=== PATIENT | female | born 1955 ===

== ENCOUNTER 2017-01-29 12:24 | Inpatient (IN) | payer BC, OTHER ==
[2017-01-08 08:49] VITALS: BMI 35.0
--- NOTE | 2017-01-08 09:24 | PAT Medication Instructions ---
Service Date January 08, 2017. Current Home Medication List Atorvastatin (Lipitor), 40 MG PO QPM Bupropion (Wellbutrin Sr), 150 MG PO BID Fluoxetine (Prozac), 10 MG PO QAM Omeprazole (Prilosec), 20 MG PO QAM Medication Instructions For Your Scheduled Surgery - Take the following medications the morning of surgery with a sip of water OTHERWISE NOTHING TO EAT OR DRINK AFTER MIDNIGHT: Fluoxetine (Prozac), 10 MG PO QAM Omeprazole (Prilosec), 20 MG PO QAM Bupropion (Wellbutrin Sr), 150 MG PO BID - Take the following medications as scheduled the night before surgery: Atorvastatin (Lipitor), 40 MG PO QPM Bupropion (Wellbutrin Sr), 150 MG PO BID If you have any questions please call us at [phone] or [phone] or [phone]
[2017-01-08 10:22] LABS: BASO % 0.4 %; BASO ABS # 0.03 K/uL (0-0.2); COMPLETE YES; EOS % 2.3 %; HEMATOCRIT 43.2 % (37-47); IG% 0.1 %; LYMPH % 29.8 %; LYMPH ABS # 2.11 K/uL (1.2-3.4); MEAN CELL VOLUME 88.5 fL (80-100); MEAN CORPUSCULAR HEMOGLOBIN 28.3 pg (25-34); MEAN CORPUSCULAR HGB CONC 31.9 g/dl (32-36); MEAN PLATELET VOLUME 10.5 fL (7.4-10.4); MONO % 13.2 %; NEUT % 54.2 %; PLATELET COUNT 286 K/uL (130-400); RED BLOOD COUNT 4.88 M/uL (4.2-5.4); WHITE BLOOD COUNT 7.07 K/uL (4.8-10.8)
[2017-01-08 10:22] LABS: MANUAL MICROSCOPIC REQUIRED? NO; REVIEW REQ? NO; URINE APPEARANCE CLEAR (CLEAR); URINE BILIRUBIN NEG (NEG); URINE COLOR YELLOW; URINE NITRITE NEG (NEG); URINE SPECIFIC GRAVITY 1.018 (1.000-1.030); UROBILINOGEN NEG (NEG); ZZUR CULT IF INDIC CLEAN CATCH NO
[2017-01-08 10:29] LABS: INR 0.9 (0.9-1.1); PARTIAL THROMBOPLASTIN RATIO 1.1
[2017-01-08 11:46] LABS: ESTIMATED AVERAGE GLUCOSE 117 mg/dl; HA1C FLAG Normal (Normal)
--- NOTE | 2017-01-22 12:37 | HISTORY & PHYSICAL EXAMINATION ---
DATE OF ADMISSION: 01/29/2017 SUBJECTIVE CHIEF COMPLAINT: Right knee pain. HISTORY OF PRESENT ILLNESS: The patient is a 61-year-old female who complains of right knee pain. She states that the symptoms have been chronic and nontraumatic in nature. The pain is described as aching and sharp, it occurs continuously. She has difficulty with her activities of daily living. She has tried cortisone injections, nonsteroidal anti-inflammatories and physical therapy with no relief. She would like to proceed with a right total knee arthroplasty. PAST MEDICAL HISTORY: Significant for hypercholesterolemia, shortness of breath while walking upstairs, osteoarthritis, GERD, obesity, and chronic kidney disease stage III. PAST SURGICAL HISTORY: Left kidney removal, left knee meniscectomy, one foot of colon removed, and tonsillectomy. SOCIAL HISTORY: She denies alcohol use, denies smoking or tobacco use. Denies IV or illegal drug use. She lives in a 1-audi house. She is currently on disability. FAMILY HISTORY: Noncontributory at this time. ALLERGIES: NONSTEROIDAL ANTI-INFLAMMATORIES. MEDICATIONS: Fluoxetine 10 mg once daily, Wellbutrin-SR 150 mg 1 tablet twice a day, esomeprazole 20 mg daily, Flexeril 10 mg 1 tab 3 times a day as needed for muscle spasms, Lipitor 40 mg 1 tab daily, Flonase nasal spray 2 sprays each nostril daily. REVIEW OF SYSTEMS: She denies headaches, fevers, chills, double vision, blurry vision, sore throat, cough, chest pain, nausea, vomiting, diarrhea, constipation, numbness, tingling, tired, urinary difficulties, thoughts to harm herself or harm others or depression. She is positive for joint pain and joint stiffness of the right knee. OBJECTIVE: GENERAL APPEARANCE: The patient is a 61-year-old female that is sitting, in no acute distress. She is well dressed, well nourished. She is awake, alert and oriented x3. VITAL SIGNS: She is 5 foot 3 inches tall, 197 pounds, blood pressure is 136/82. HEENT: Normocephalic, atraumatic. Extraocular movements are intact. PERRLA. Mucosa was moist. No septal deviation. NECK: Supple with no lymphadenopathy, no JVD, no thyromegaly. HEART: Regular rate and rhythm. No murmurs or gallops. LUNGS: Clear to auscultation with no wheezing or rhonchi. ABDOMEN: Soft, nontender, nondistended. Normal bowel sounds, no hepatosplenomegaly. EXTREMITIES: Paying particular attention to the right lower extremity with her knee. She is able to actively extend to 0 degrees and actively flex to 90 degrees. She does have diffuse tenderness, more so over the medial joint line. Her ligaments are intact. NEUROLOGIC: Cranial nerves II-XII are intact. Pulses were compared bilaterally and were equal. IMAGING: X-ray of the right knee shows [id number] medial compartment osteophyte formation and subchondral sclerosis. IMPRESSION: Right knee degenerative joint disease. PLAN: The patient is scheduled for a right total knee arthroplasty. She has failed conservative therapies that include cortisone injection, nonsteroidal anti-inflammatories and physical therapy. She would like to proceed with a right total knee arthroplasty. Risks and benefits were discussed that included but not limited to infection, DVT, pain, stiffness, need for revision surgery, damage to blood vessels, damage to nerves, PE, and anesthesia risks were all discussed with the patient and she wishes to proceed. All questions were answered to her satisfaction. DVT prophylaxis will be aspirin 81 mg twice a day. She would like to go home with home health after her hospital stay and her postop appointment will be on 02/10/2017. LAURA
[2017-01-29] VITALS (7 sets, daily range): BP systolic 118–143; BP diastolic 78–86; PULSE 75–92; TEMP 36.5–37; O2SAT 89–98; Ht 160 cm; Wt 90.0 kg
[~2017-01-29] VITALS: Ht 160 cm; Wt 90.0 kg
[~2017-01-29 12:24] MED LIST: ACETAMINOPHEN 500 MG TAB PO SCH; ATOR-24 PO; BUPIVACAINE 0.25% 30 ML VIAL ONE; BUPIVACAINE 0.5 % 5 MG/1 ML PF 10ML VIAL ONE; BUPR-79 PO; CEFAZOLIN 2000 MG/60 ML D5W 60 ML IV SCH; CeleBREX 200 MG CAP PO SCH; DEXAMETHASONE 4 MG TAB PO SCH; FAMOTIDINE 20 MG TAB PO SCH; FENTANYL CITRATE INJ 50 MCG/1 ML 2 ML VIAL ONE; FLUO10CA48 PO; GABAPENTIN 300 MG CAP PO SCH; LACTATED RINGER'S 1000ML 1,000 ML IV SCH; LACTATED RINGER'S 1000ML IV SCH; METOCLOPRAMIDE HCL 10 MG TAB PO SCH; MIDAZOLAM HCL 1 MG/ML 2ML VIAL ONE; ONDANSETRON INJ 2 MG/ML 2 ML VIAL ONE; OXYCODONE HCL 10 MG TABCR (OXYCONTIN) PO SCH; PRLSR20 PO; PROPOFOL IV EMULSION 10 MG/ML 20 ML VIAL IV ONE; ROPIVACAINE 5MG/ML 30 ML 150 MG, BUPIVACAINE/EPINEPHR 0.5% MPF 30 ML, KETOROLAC TROMETH... INFIL SCH
--- NOTE | 2017-01-29 12:52 | History & Physical Bridge Note ---
H&P Re-Evaluation Bridge Note: I have examined the patient, reviewed the History & Physical and in the interval since the performance of the History & Physical I have noted the following changes of clinical significance: No changes noted
[2017-01-29] MEDS ORDERED: ORTHO JOINT ANESTHETIC ONE (13:24)
[2017-01-29] MEDS ORDERED: BACITRACIN 50000 UNIT VIAL ONE (13:24)
[2017-01-29] MEDS ORDERED: POVIDONE-IODINE OP SOLN 30 ML BTL ONE (13:24)
[2017-01-29] MEDS ORDERED: LACTATED RINGER'S 1000ML 1,000 ML IV PRN (13:38)
[2017-01-29] MEDS: TRANEXAMIC ACID INJ 1,000 MG in SODIUM CHLORIDE 0.9% 100ML 100 ML IV SCH ×2 (13:40→16:15)
[2017-01-29] MEDS ORDERED: FENTANYL CITRATE INJ 50 MCG/1 ML 2 ML VIAL IV PRN (13:45)
[2017-01-29] MEDS ORDERED: ONDANSETRON INJ 2 MG/ML 2 ML VIAL IV PRN (13:45)
[2017-01-29] MEDS ORDERED: MIDAZOLAM HCL 1 MG/ML 2ML VIAL ONE (14:15)
[2017-01-29] MEDS ORDERED: PROPOFOL IV EMULSION 10 MG/ML 20 ML VIAL IV ONE (15:23)
--- NOTE | 2017-01-29 15:47 | [facility] Post Operative Brief Note ---
Immediate Operative Summary Operative Date Jan 29, 2017. Pre-Operative Diagnosis Right knee degenerative joint disease Post-Operative Diagnosis Right knee degenerative joint disease Procedure(s) Performed Right Total Knee Arthroplasty Surgeon Dr. Vargas Blender / Cook Surgeon(s) Gary Alvarado PA-C Estimated Blood Loss 20ml Findings above Specimens A. Right Knee Bone and Tissue Drains 2 hemovac Anesthesia spinal Complication(s) None Disposition Recovery Room / PACU
[2017-01-29] MEDS ORDERED: BISACODYL 10 MG SUPP PR PRN (16:15)
[2017-01-29] MEDS ORDERED: ALUMINUM/MAGNESIUM/SIMETH (MAALOX MAX) 30 ML UDC PO PRN (16:15)
[2017-01-29] MEDS ORDERED: MoRPHine SULFATE 2 MG/ML CARP IV PRN ×2 (16:15→16:30)
[2017-01-29] MEDS ORDERED: MAGNESIUM HYDROXIDE SUSP 30 ML UDC PO PRN (16:15)
[2017-01-29] MEDS ORDERED: MoRPHine SULFATE 4 MG/ML 1 ML CARP\\VIAL IV PRN (16:30)
[2017-01-29] MEDS ORDERED: MoRPHine SULFATE 10 MG/ML CARP/VIAL IV PRN (16:30)
--- NOTE | 2017-01-29 16:30 | DIAGNOSTIC IMAGING REPORT ---
RIGHT KNEE 1 OR 2 VIEWS ROUTINE CLINICAL HISTORY: Osteoarthritis. Postoperative study COMPARISON: None. DISCUSSION: There are postsurgical changes of a total right knee arthroplasty and patellar resurfacing. The femoral and tibial components appear well seated. Overlying skin jeet and surgical drains are evident. There is air within soft tissues consistent with recent surgery. IMPRESSION: Postsurgical changes of a total right knee arthroplasty. Electronically signed by: Bobby Trevino M.D. 01/29/2017 4:29 PM Dictated Date/Time: 01/29/2017 4:28 PM
--- NOTE | 2017-01-29 17:06 | Anesthesiology Progress Note ---
Anesthesia Post Op Note Date & Time Jan 29, 2017 at 17:07 Vital Signs Pain Intensity: 0 Vital Signs Past 12 Hours Date Time Temp Pulse Resp B/P (MAP) Pulse Ox O2 Delivery O2 Flow Rate FiO2 01/29/17 16:35 87 12 96 01/29/17 16:35 87 12 01/29/17 16:33 36.8 87 16 126/70 95 Nasal Cannula 2 01/29/17 16:32 126/70 01/29/17 16:30 84 11 125/78 97 01/29/17 16:30 85 11 01/29/17 16:20 85 12 119/74 98 Nasal Cannula 2 01/29/17 16:11 37.2 90 16 110/67 98 Nasal Cannula 2 01/29/17 16:00 37.2 90 20 118/76 98 Nasal Cannula 2 01/29/17 12:50 37 86 18 95 Room Air Notes Mental Status: alert / awake / arousable, participated in evaluation Pt Amnestic to Procedure: Yes Nausea / Vomiting: adequately controlled Pain: adequately controlled Airway Patency, RR, SpO2: stable & adequate BP & HR: stable & adequate Hydration State: stable & adequate Neuraxial Anesthesia: was administered, sensory block is resolving Anesthetic Complications: no major complications apparent Pt did well.
[2017-01-29] MEDS: D5W AND 1/2NSS + 20MEQ KCL 1,000 ML IV SCH (18:10)
[2017-01-29] MEDS: FERROUS GLUCONATE 324 MG TAB PO SCH (18:11)
--- NOTE | 2017-01-29 18:40 | OPERATIVE REPORT ---
DATE OF OPERATION: 01/29/2017 PREOPERATIVE DIAGNOSIS: Right knee degenerative joint disease. POSTOPERATIVE DIAGNOSIS: Same. PROCEDURE: Right total knee arthroplasty. SURGEON: Dr. Vargas. ARC FURNACE OPERATOR: Gary Alvarado PA-C who was necessary for assistance of procedure with positioning, prepping, draping, retraction and closure. ANESTHESIA: Spinal with adductor canal block. SPECIMEN: Bone and tissue. COMPLICATIONS: None. ESTIMATED BLOOD LOSS: 20 mL. IMPLANTS: [employer] Journey version 2, femur 5, tibia 4, poly 9, patella 35 oval. COMPLICATIONS: None. INDICATIONS: The patient is a 61-year-old female with long-standing pain in the right knee. She has failed conservative measures including injection. SHE IS ALLERGIC TO Antiinflammatory MEDICATIONS. X-rays demonstrated that she is bone on bone in the lateral compartment on flexion x-ray views. Failing conservative measures, she wished to proceed with a right total knee arthroplasty. Risks, benefits, and alternatives of surgery including but not limited to infection, DVT, pain, stiffness, need for revision surgery, failure to relieve all symptoms, damage to blood vessels, damage to nerves, risks of anesthesia discussed with patient and she wished to proceed. DESCRIPTION OF PROCEDURE: The patient was identified, laterality was confirmed and marked. She received a preoperative antibiotic as well as a spinal anesthetic and an adductor canal block. A well-padded tourniquet was placed on the thigh and limb was prepped and draped in the usual sterile manner with ChloraPrep. Limb was exsanguinated and tourniquet was inflated. I made a longitudinal incision anterior aspect of the knee, sharply incising the skin utilizing Bovie electrocautery to achieve hemostasis. I made a medial parapatellar arthrotomy, mobilized the patella laterally, excised the anterior horns of medial and lateral meniscus and elevated the deep MCL. I then pinned into place a patient matched distal femoral cutting guide, made my distal femoral resection then pinned into place a size 5, 5-in-1 cutting guide, made my anterior, posterior and chamfer cuts. I then removed the remaining portions of the meniscus and cruciates. I then pinned into place my tibial cutting guide, which was patient matched and then made my tibial resection. We sized in position a size 4 tibia, pinned into place and then cut for the post. I removed the posterior osteophytes off of the femur and I placed the trial femoral component into position and reamed for the trochlear component. She had good soft tissue balancing and range of motion with a 9 mm poly. We then prepped the patella with a freehand cut and then sized and drilled for a size 39 oval patella. She had slight lateral tracking to the patella. Small lateral release was needed. All the trial components were removed. Wound was thoroughly irrigated. The definitive components were then cemented with Simplex with HV gent cement and this was [employer] Journey version 2, femur 5, tibia 4, poly 9, patella 35 oval. Deep tissues were anesthetized with an Orthomix solution. A deep drain was placed. Arthrotomy was closed with interrupted #1 Vicryl sutures, subcutaneous tissue with interrupted 2-0 Vicryl suture and skin with jeet. A sterile dressing was applied. All needle and sponge counts were correct at the end of the procedure. The patient was transferred to the PACU in stable condition without apparent complication. I attest to the content of the Intraoperative Record and any orders documented therein. Any exception s are noted below.
[2017-01-29] MEDS: OXYCODONE HCL 10 MG TABCR (OXYCONTIN) PO SCH (20:41)
[2017-01-29] MEDS: CEFAZOLIN IV 2,000 MG in DEXTROSE 5% 50ML 50 ML IV SCH (20:42)
[2017-01-29] MEDS: DOCUSATE SODIUM 100 MG CAP PO SCH (20:42)
[2017-01-29] MEDS: ASPIRIN 81 MG ECTAB PO SCH (20:42)
[2017-01-29] MEDS: SENNA 8.6 MG TAB PO SCH (20:43)
[2017-01-29] MEDS: BuPROPion SR 150 MG TABCR PO SCH (20:43)
[2017-01-29] MEDS: ATORVASTATIN 40 MG TAB PO SCH (20:43)
[2017-01-29] MEDS: ACETAMINOPHEN 500 MG TAB PO SCH (21:31)
[2017-01-29] MEDS: ONDANSETRON INJ 2 MG/ML 2 ML VIAL IV PRN (23:55)
[2017-01-30] VITALS (8 sets, daily range): BP systolic 142–163; BP diastolic 84–97; PULSE 71–89; TEMP 36.4–36.8; O2SAT 94–98
[2017-01-30] MEDS: CEFAZOLIN IV 2,000 MG in DEXTROSE 5% 50ML 50 ML IV SCH (04:04)
[2017-01-30] MEDS: D5W AND 1/2NSS + 20MEQ KCL 1,000 ML IV SCH ×2 (04:04→13:47)
[2017-01-30] MEDS: ACETAMINOPHEN 500 MG TAB PO SCH ×3 (05:35→22:09)
[2017-01-30 06:08] LABS: MEAN CELL VOLUME 87.4 fL (80-100); MEAN CORPUSCULAR HEMOGLOBIN 27.8 pg (25-34); MEAN CORPUSCULAR HGB CONC 31.8 g/dl (32-36); MEAN PLATELET VOLUME 10.1 fL (7.4-10.4); PLATELET COUNT 265 K/uL (130-400); RED BLOOD COUNT 4.35 M/uL (4.2-5.4); WHITE BLOOD COUNT 15.34 K/uL (4.8-10.8)
[2017-01-30 06:38] LABS: BUN/CREATININE RATIO 11.5 (10-20); CALCIUM 8.6 mg/dl (8.5-10.1); CREATININE 1.8 mg/dl (0.60-1.20); POTASSIUM 4.2 mmol/L (3.5-5.1)
[2017-01-30] MEDS: ONDANSETRON INJ 2 MG/ML 2 ML VIAL IV PRN (07:33)
[2017-01-30] MEDS: FERROUS GLUCONATE 324 MG TAB PO SCH ×3 (08:30→17:27)
[2017-01-30] MEDS: MULTIVITAMIN TAB PO SCH (09:00)
[2017-01-30] MEDS: DOCUSATE SODIUM 100 MG CAP PO SCH ×2 (09:40→20:37)
[2017-01-30] MEDS: BuPROPion SR 150 MG TABCR PO SCH ×2 (09:40→20:37)
[2017-01-30] MEDS: ASPIRIN 81 MG ECTAB PO SCH ×2 (09:40→20:37)
[2017-01-30] MEDS: OXYCODONE HCL 10 MG TABCR (OXYCONTIN) PO SCH ×2 (09:40→20:37)
[2017-01-30] MEDS: PANTOprazole SOD 40 MG TAB PO SCH (09:40)
[2017-01-30] MEDS: FLUOXETINE HCL 10 MG CAP PO SCH (09:40)
--- NOTE | 2017-01-30 10:14 | Orthopedic Progress Note ---
Orthopedic Progress Note Date of Service Jan 30, 2017. Subjective Post OP Day: 1 Reports: nausea / vomiting, pain controlled w PO medications, Denies: chest pain , SOB, light headedness, calf pain Additional Notes: N/V THIS AM RESOLVING MORNING GOES ON. HTN , MILDLY ELEVATED KIDNEY FUNCTION, HX OF ONE KIDNEY. Objective calves soft nontender, N/V intact, capillary refill less than 2 sec., dressing C /D/I, A&O x3, toes mobile Date Time Temp Pulse Resp B/P (MAP) Pulse Ox O2 Delivery O2 Flow Rate FiO2 01/30/17 08:15 163/96 (118) 01/30/17 08:13 153/97 (115) 01/30/17 08:11 145/90 (108) 01/30/17 07:46 Room Air 01/30/17 07:10 36.5 74 16 148/90 (109) 94 Room Air 01/30/17 02:59 36.4 71 16 150/92 (111) 97 Room Air 01/29/17 23:30 Room Air 01/29/17 23:30 36.5 75 18 118/78 (91) 95 Room Air 01/29/17 20:27 36.9 92 16 143/80 (101) 95 Room Air 01/29/17 18:59 36.9 83 16 132/82 (99) 97 Nasal Cannula 2.0 01/29/17 17:55 36.8 83 16 127/82 (97) 95 Nasal Cannula 2.0 01/29/17 17:26 36.9 83 18 136/84 (101) 97 Nasal Cannula 2.0 01/29/17 16:55 98 Nasal Cannula 2.0 01/29/17 16:55 36.7 82 18 125/86 (99) 89 Nasal Cannula 2.0 01/29/17 16:55 98 Nasal Cannula 2.0 01/29/17 16:35 87 12 96 01/29/17 16:35 87 12 01/29/17 16:33 36.8 87 16 126/70 95 Nasal Cannula 2 01/29/17 16:32 126/70 01/29/17 16:30 84 11 125/78 97 01/29/17 16:30 85 11 01/29/17 16:20 85 12 119/74 98 Nasal Cannula 2 01/29/17 16:11 37.2 90 16 110/67 98 Nasal Cannula 2 01/29/17 16:00 37.2 90 20 118/76 98 Nasal Cannula 2 01/29/17 12:50 37 86 18 95 Room Air Laboratory Results 24 Hours: Test 01/30/17 05:45 Hematocrit 38.0 % Hemoglobin 12.1 g/dL Assessment & Plan Assessment: POD #1, RIGHT TKA POST OP HTN Plan: PT/ OT DVT PROPH- ASA D/C PLANNING HOME W HH CONSULT MEDICINE- UNCONTROLLED HTN, KIDNEY FUNCTION Inhouse Planning Pain Management: Oxycontin, Morphine, PO Tylenol, Oxy IR DVT Prophylaxis: TEDs, SCDs, ASA Discharge Planning Discharge Planning: home with home health Pain Management: Oxycontin, PO Tylenol, Oxy IR DVT Prophylaxis: TEDs, ASA Therapy: Physical Therapy, Occupational Therapy
[2017-01-30] MEDS ORDERED: HydrALAZINE HCL 20 MG/ML VIAL IV. PRN (10:30)
--- NOTE | 2017-01-30 16:45 | Medical Consult ---
Consultation Date of Consultation: Jan 30, 2017. Attending Physician: Rodolfo Vargas M.D. Reason for Consultation: Elevated creatine/ HTN History of Present Illness 61-year-old female with PMH of Dyslipidemia, CKD stage 3, S/P nephrectomy 2 yrs ago. Failed conservative management ( knee injection, NSAIDs, PT) for right knee arthritis complains of right knee pain. S/P right total knee arthroplasty performed by dr. Pastor. [facility] hospitalist was consulted for elevated creatine and HTN. Pt said that she feels fine. she denies any pain now. denies any chest pain, palpitation, dizziness and SOB. Social History Smoking Status: Former Smoker Alcohol Use: none Drug Use: none Allergies Coded Allergies: NSAIDs (Verified Allergy, Unknown, GI UPSET, 01/29/17) Hydromorphone (Unverified Adverse Reaction, Unknown, NAUSEA/VOMITING, ) PER PCP RECORDS Current Inpatient Medications Current Inpatient Medications Medications (Trade) Dose Ordered Sig/Gosia Route Start Time Stop Time Status Last Admin Dose Admin Atorvastatin Calcium (Lipitor Tab) 40 mg QPM PO 01/29/17 21:00 02/28/17 20:59 01/29/17 20:43 40 MG Bupropion HCl (Wellbutrin-Sr Tab) 150 mg BID PO 01/29/17 21:00 02/28/17 20:59 01/30/17 09:40 150 MG Fluoxetine HCl (Prozac Cap) 10 mg QAM PO 01/30/17 09:00 03/01/17 08:59 01/30/17 09:40 10 MG Potassium Chloride/Dextrose/ Sod Cl 1,000 ml @ 100 mls/hr Q10H IV 01/29/17 17:45 01/30/17 17:44 01/30/17 04:04 100 MLS/HR Oxycodone HCl (Roxicodone Immediate Rel Tab) 1 TABLET FOR PAIN RATING... Q4H PRN PO 01/29/17 16:15 02/12/17 16:14 Oxycodone HCl (Oxycontin Tab) 10 mg Q12 PO 01/29/17 21:00 02/12/17 20:59 01/30/17 09:40 10 MG Acetaminophen (Tylenol Tab) 1,000 mg Q8H PO 01/29/17 22:00 02/28/17 21:59 01/30/17 05:35 1,000 MG Magnesium Hydroxide (Milk Of Magnesia Susp) 30 ml Q6H PRN PO 01/29/17 16:15 02/28/17 16:14 Bisacodyl (Dulcolax Supp) 10 mg DAILY PRN LA 01/29/17 16:15 02/28/17 16:14 Senna (Senokot Tab) 17.2 mg HS PO 01/29/17 21:00 02/28/17 20:59 01/29/17 20:43 17.2 MG Docusate Sodium (coLACE CAP) 100 mg BID PO 01/29/17 21:00 02/28/17 20:59 01/30/17 09:40 100 MG Al Hydrox/Mg Hydrox/Simethicone (Maalox Max Susp) 15 ml Q4H PRN PO 01/29/17 16:15 02/28/17 16:14 Multivitamins (Multivitamin Tab) 1 tab QAM PO 01/30/17 09:00 03/01/17 08:59 Ondansetron HCl (Zofran Inj) 4 mg Q6H PRN IV 01/29/17 16:15 02/28/17 16:14 01/30/17 07:33 4 MG Ferrous Gluconate (Ferrous Gluconate Tab) 324 mg TIDM PO 01/29/17 17:45 02/28/17 17:59 01/29/17 18:11 324 MG Pantoprazole Sodium (Protonix Tab) 40 mg QAM PO 01/30/17 09:00 03/01/17 08:59 01/30/17 09:40 40 MG Aspirin (Ecotrin Tab) 81 mg BID PO 01/29/17 21:00 02/28/17 20:59 01/30/17 09:40 81 MG Morphine Sulfate (MoRPHine SULFATE INJ) 2 mg Q4HWA PRN IV 01/29/17 16:30 02/12/17 16:29 Morphine Sulfate (MoRPHine SULFATE INJ) 4 mg Q4HWA PRN IV 01/29/17 16:30 02/12/17 16:29 Morphine Sulfate (MoRPHine SULFATE INJ) 6 mg Q4HWA PRN IV 01/29/17 16:30 02/12/17 16:29 Hydralazine HCl (HydrALAZINE INJ) 5 mg Q4H PRN IV. 01/30/17 10:30 03/01/17 10:29 Review of Systems Constitutional: No fever, No chills, No sweats, No weakness Eyes: No worsening of vision, No redness, No discharge ENT: No hearing loss, No unusual epistaxis, No nasal symptoms, No sore throat Respiratory: No cough, No sputum, No wheezing, No shortness of breath Cardiovascular: No chest pain, No orthopnea, No palpitations Abdomen: No pain, No nausea, No vomiting Genitourinary - Female: No dysuria, No urinary frequency, No urinary urgency Neurologic: No weakness, No numbness/tingling Psychiatric: No anxiety, No substance abuse Endocrine: No fatigue Hematologic / Lymphatic: No night sweats Integumentary: No rash, No itch Physical Exam Date Time Temp Pulse Resp B/P (MAP) Pulse Ox O2 Delivery O2 Flow Rate FiO2 01/30/17 10:54 36.8 89 16 153/84 (107) 98 Room Air 01/30/17 08:15 163/96 (118) 01/30/17 08:13 153/97 (115) 01/30/17 08:11 145/90 (108) 01/30/17 07:46 Room Air 01/30/17 07:10 36.5 74 16 148/90 (109) 94 Room Air 01/30/17 02:59 36.4 71 16 150/92 (111) 97 Room Air 01/29/17 23:30 Room Air 01/29/17 23:30 36.5 75 18 118/78 (91) 95 Room Air 01/29/17 20:27 36.9 92 16 143/80 (101) 95 Room Air 01/29/17 18:59 36.9 83 16 132/82 (99) 97 Nasal Cannula 2.0 01/29/17 17:55 36.8 83 16 127/82 (97) 95 Nasal Cannula 2.0 01/29/17 17:26 36.9 83 18 136/84 (101) 97 Nasal Cannula 2.0 01/29/17 16:55 98 Nasal Cannula 2.0 01/29/17 16:55 36.7 82 18 125/86 (99) 89 Nasal Cannula 2.0 01/29/17 16:55 98 Nasal Cannula 2.0 01/29/17 16:35 87 12 96 01/29/17 16:35 87 12 01/29/17 16:33 36.8 87 16 126/70 95 Nasal Cannula 2 01/29/17 16:32 126/70 01/29/17 16:30 84 11 125/78 97 01/29/17 16:30 85 11 01/29/17 16:20 85 12 119/74 98 Nasal Cannula 2 01/29/17 16:11 37.2 90 16 110/67 98 Nasal Cannula 2 01/29/17 16:00 37.2 90 20 118/76 98 Nasal Cannula 2 01/29/17 12:50 37 86 18 95 Room Air General Appearance: WD/WN, no apparent distress Head: normocephalic, atraumatic Eyes: normal inspection, PERRL, EOMI ENT: normal ENT inspection, hearing grossly normal Neck: supple, no JVD Respiratory/Chest: lungs clear, normal breath sounds, no respiratory distress, no accessory muscle use Cardiovascular: regular rate, rhythm, no JVD, no murmur Abdomen/GI: normal bowel sounds, non tender, soft Back: no CVA tenderness Extremities/Musculoskelatal: no calf tenderness, normal capillary refill, + pertinent finding (right knee wraps with drainage in place) Neurologic/Psych: designated broker II-XII nml as tested, no motor/sensory deficits, alert, oriented x 3 Skin: normal color, warm/dry, no rash Laboratory Results Last 24 Hours Test 01/30/17 05:45 White Blood Count 15.34 K/uL Red Blood Count 4.35 M/uL Hemoglobin 12.1 g/dL Hematocrit 38.0 % Mean Corpuscular Volume 87.4 fL Mean Corpuscular Hemoglobin 27.8 pg Mean Corpuscular Hemoglobin Concent 31.8 g/dl RDW Standard Deviation 49.6 fL RDW Coefficient of Variation 15.3 % Platelet Count 265 K/uL Mean Platelet Volume 10.1 fL Sodium Level 142 mmol/L Potassium Level 4.2 mmol/L Chloride Level 110 mmol/L Carbon Dioxide Level 22 mmol/L Anion Gap 10.0 mmol/L Blood Urea Nitrogen 21 mg/dl Creatinine 1.80 mg/dl Est Creatinine Clear Calc Drug Dose 35.8 ml/min Estimated GFR () 35.1 Estimated GFR (Non- 30.3 BUN/Creatinine Ratio 11.5 Random Glucose 149 mg/dl Calcium Level 8.6 mg/dl Assessment & Plan Right Total Knee arthroplasty S/P day # 1 Right TKA performed by Dr. Vargas Continue pain management PT/OT eval Incentive spirometry monitor H/H KIT on CKD stage 3 S/P nephrectomy 2year ago creatine baseline 1.4-1.6 last creatine on 01/04/17 was 1.3 creatine today 1.8 Will IVFx 1L avoid nephrotoxic agents Continue monitor BMP Elevated BP Possible was related to malaise and pain from the surgery Not on any BP med BP improved add hydralazine prn for SBP greater than 160 continue monitor BP DVT Px as per Ortho CODE status full code We will follow the patient with you during the hospital course. Thank you for the consult
[2017-01-30] MEDS ORDERED: SODIUM CHLORIDE 0.9% 1000ML 1,000 ML IV SCH (17:00)
[2017-01-30] MEDS: OXYCODONE HCL IR 5 MG TAB (IMMEDIATE RELEASE) PO PRN (19:46)
[2017-01-30] MEDS: SENNA 8.6 MG TAB PO SCH (20:38)
[2017-01-30] MEDS: ATORVASTATIN 40 MG TAB PO SCH (20:38)
[2017-01-31] MEDS: ACETAMINOPHEN 500 MG TAB PO SCH (06:16)
[2017-01-31 06:44] LABS: MEAN CELL VOLUME 87.1 fL (80-100); MEAN CORPUSCULAR HEMOGLOBIN 27.1 pg (25-34); MEAN CORPUSCULAR HGB CONC 31.1 g/dl (32-36); MEAN PLATELET VOLUME 9.9 fL (7.4-10.4); PLATELET COUNT 243 K/uL (130-400); RED BLOOD COUNT 4.02 M/uL (4.2-5.4); WHITE BLOOD COUNT 12.52 K/uL (4.8-10.8)
[2017-01-31 06:49] VITALS: BP 152/94; PULSE 71; TEMP 36.6; O2SAT 96
[2017-01-31 07:25] LABS: BUN/CREATININE RATIO 14.5 (10-20); CALCIUM 8.6 mg/dl (8.5-10.1); CREATININE 1.3 mg/dl (0.60-1.20)
[2017-01-31] MEDS: BuPROPion SR 150 MG TABCR PO SCH (08:06)
[2017-01-31] MEDS: OXYCODONE HCL 10 MG TABCR (OXYCONTIN) PO SCH (08:06)
[2017-01-31] MEDS: MULTIVITAMIN TAB PO SCH (08:06)
[2017-01-31] MEDS: ASPIRIN 81 MG ECTAB PO SCH (08:06)
[2017-01-31] MEDS: FERROUS GLUCONATE 324 MG TAB PO SCH (08:06)
[2017-01-31] MEDS: OXYCODONE HCL IR 5 MG TAB (IMMEDIATE RELEASE) PO PRN (08:06)
[2017-01-31] MEDS: DOCUSATE SODIUM 100 MG CAP PO SCH (08:07)
[2017-01-31] MEDS: FLUOXETINE HCL 10 MG CAP PO SCH (08:07)
[2017-01-31] MEDS: PANTOprazole SOD 40 MG TAB PO SCH (08:07)
--- NOTE | 2017-01-31 08:55 | Orthopedic Progress Note ---
Orthopedic Progress Note Date of Service Jan 31, 2017. Subjective Post OP Day: 2 Reports: feeling well, pain controlled w PO medications, Denies: complaints, chest pain, SOB, nausea / vomiting, light headedness, calf pain Additional Notes: renal function improving BP still elevated. Objective calves soft nontender, N/V intact, capillary refill less than 2 sec., dressing C /D/I, A&O x3, toes mobile silverlon in tact. Date Time Temp Pulse Resp B/P (MAP) Pulse Ox O2 Delivery O2 Flow Rate FiO2 01/31/17 07:55 Room Air 01/31/17 06:49 36.6 71 16 152/94 (113) 96 Room Air 01/30/17 22:55 36.8 87 16 154/86 (108) 94 Room Air 01/30/17 20:20 Room Air 01/30/17 15:27 36.7 84 16 142/85 (104) 95 Room Air 01/30/17 10:54 36.8 89 16 153/84 (107) 98 Room Air Laboratory Results 24 Hours: Test 01/31/17 05:43 Hematocrit 35.0 % Hemoglobin 10.9 g/dL Assessment & Plan Assessment: POD #2, RIGHT TKA POST OP HTN Plan: PT/ OT DVT PROPH- ASA D/C PLANNING HOME W HH TODAY IF OK W MEDICINE PER MEDICINE Inhouse Planning Pain Management: Oxycontin, Morphine, PO Tylenol, Oxy IR DVT Prophylaxis: TEDs, SCDs, ASA Discharge Planning Discharge Planning: home with home health Pain Management: Oxycontin, PO Tylenol, Oxy IR DVT Prophylaxis: TEDs, ASA Therapy: Physical Therapy, Occupational Therapy
[2017-01-31] MEDS ORDERED: RXC5 PO (08:59)
[2017-01-31] MEDS ORDERED: ACET-1138 PO (08:59)
[2017-01-31] MEDS ORDERED: OXYSR10 PO (08:59)
[2017-01-31] MEDS ORDERED: ASPEC81 PO (08:59)
[2017-01-31] MEDS ORDERED: ONDA8TAB6 PO (08:59)
--- NOTE | 2017-01-31 09:05 | Discharge Instructions ---
Discharge Instructions Date of Service Jan 31, 2017. Admission Reason for Admission: Right Knee Osteoarthritis Discharge Discharge Diagnosis / Problem: RIGHT TKA Discharge Goals Goal(s): Improve function Activity Recommendations Activity Limitations: as noted below . Instructions / Follow-Up Instructions / Follow-Up ACTIVITY RECOMMENDATIONS: SELF CARE INSTRUCTIONS AFTER TOTAL KNEE REPLACEMENT A. You may need to continue a physical therapy program after discharge from the hospital. There are several options available to you. Your doctor will assist you in selecting the best one for you. 1. An out-patient facility 2 to 3 times a week for therapy or home therapy. 2. Continue working on all exercises taught to you in the hospital. Your goals should be to increase bending of your knee to 90 degrees and beyond and to fully straighten your knee. B. You may progress at your own pace from walking with a walker or crutches to a cane; then to no assistive devices. C. Make walking a part of your daily routine. Be up as much as comfortable with rest periods throughout the day. Rest with leg elevation is very important. Use the ice wrap frequently for the first 3-4 weeks. D. There are no restrictions on activities. You may ride in a car, shop, participate in seo executive and all social activities. E. Wear the long elastic stockings (OVI hose) 20 hours a day for 2 weeks after surgery. They can be removed several times a day for laundering and for a bath. F. You may shower, no tub baths until cleared by your doctor. SPECIAL CARE INSTRUCTIONS: VERY IMPORTANT TO READ AND REVIEW A. There are a few signs you need to watch for after you are home. Call [facility] [place] if you notice any of the followin. Increased severe knee pain. Some pain is expected especially when you exercise. 2. Increased swelling in your leg or knee; pain or swelling of the calf muscle in either lower leg. 3. Any fluid drainage from the incision. 4. Shortness of breath or chest pain. B. Please call [facility] at if you have any concerns or questions about your operation or recovery. The doctor or his nurse will return your call promptly. C. You must take antibiotics before dental work, bladder, bowel or other surgery. Your doctor will provide you with a permanent care to carry describing this precaution. IMPORTANT: * REMEMBER TO TAKE ASPIRIN, 81 MG, TWICE DAILY FOR 4 WEEKS UNLESS OTHERWISE DIRECTED. THIS IS YOUR BLOOD THINNER. * HIGH RISK PATIENTS MAY BE PRESCRIBED A STRONGER BLOOD THINNER. THIS WILL BE PROVIDED AT DISCHARGE. * CALL IF INCREASED PAIN, REDNESS, DRAINAGE OR FEVER GREATER THAT 101. * WEAR OVI HOSE 20 HOURS PER DAY FOR 2 WEEKS. * YOU MAY HAVE A LARGE BAND-AID LIKE DRESSING (SILVERON). THIS WILL REMAIN ON YOUR INCISION FOR 7 DAYS, THEN CAN BE REMOVED. IF INCISION IS LEAKING THROUGH DRESSING, CALL THE OFFICE . FOLLOW UP VISIT: If appointment is not already scheduled: Please call [facility] [place] to make a follow-up appointment for 2 weeks after your surgery at . Current Hospital Diet Patient's current hospital diet: Regular Diet Discharge Diet Recommended Diet: Regular Diet Procedures Procedures Performed: Right Total Knee Arthroplasty Pending Studies Studies pending at discharge: no Laboratory Results Hemoglobin A1c Test 01/08/17 09:31 Range/Units Estimated Average Glucose 117 mg/dl Hemoglobin A1c 5.7 H 4.5-5.6 % Medical Emergencies . Who to Call and When: Medical Emergencies: If at any time you feel your situation is an emergency, please call 911 immediately. . Non-Emergent Contact Non-Emergency issues call your: Primary Care Provider . "Provider Documentation" section prepared by Lionel Rey. . VTE Core Measure Inpt VTE Proph given/why not?: Other Anticoagulation (ASA), T.E.D. Stockings, SCD's [place] Drug Monitoring Program Search Results: patient reviewed within database, no issues identified
[2017-01-31 09:39] VITALS: BP 152/94; PULSE 71; TEMP 36.6; O2SAT 96
--- NOTE | 2017-01-31 10:32 | Progress Note ---
Medicine Progress Note Date & Time of Visit: Jan 31, 2017 at 10:21. Subjective Pt was seen and examined Sitting in bed with at bedside with no distress Pt said that she feels fine She denies any pain in the right knee Denies any chest pain, palpitation, dizziness and SOB Objective Last 8 Hrs Date Time Temp Pulse Resp B/P (MAP) Pulse Ox O2 Delivery O2 Flow Rate FiO2 01/31/17 09:39 36.6 71 16 96 Room Air 01/31/17 07:55 Room Air 01/31/17 06:49 36.6 71 16 152/94 (113) 96 Room Air Physical Exam: General- very pleasant, no acute distress Head- atraumatic Eyes- PERRL, EOMI ENT- oropharynx clear Neck- supple, no JVD Lungs- clear to auscultation Heart- regular rhythm; no murmur Abdomen- normal bowel sounds, soft Extremities- no calf tenderness, Right knee with dressing on Neuro- alert, oriented x 3; PERRL, EOMI; no facial palsy; no dysarthria Skin- warm & dry Laboratory Results: Last 24 Hours Test 01/31/17 05:43 White Blood Count 12.52 K/uL Red Blood Count 4.02 M/uL Hemoglobin 10.9 g/dL Hematocrit 35.0 % Mean Corpuscular Volume 87.1 fL Mean Corpuscular Hemoglobin 27.1 pg Mean Corpuscular Hemoglobin Concent 31.1 g/dl RDW Standard Deviation 50.9 fL RDW Coefficient of Variation 15.9 % Platelet Count 243 K/uL Mean Platelet Volume 9.9 fL Sodium Level 146 mmol/L Potassium Level 4.0 mmol/L Chloride Level 113 mmol/L Carbon Dioxide Level 23 mmol/L Anion Gap 10.0 mmol/L Blood Urea Nitrogen 19 mg/dl Creatinine 1.30 mg/dl Est Creatinine Clear Calc Drug Dose 49.6 ml/min Estimated GFR () 52.0 Estimated GFR (Non- 44.9 BUN/Creatinine Ratio 14.5 Random Glucose 82 mg/dl Calcium Level 8.6 mg/dl Assessment & Plan Right Total Knee arthroplasty S/P day # 2 Right TKA performed by Dr. Vargas Continue pain management Hbg 10.9 Continue PT/OT Incentive spirometry monitor H/H KIT on CKD stage 3 S/P nephrectomy 2year ago creatine baseline 1.4-1.6 last creatine on 01/04/17 was 1.3 creatine improved from 1.8 to 1.3 Received 1L of NS avoid nephrotoxic agents Continue monitor BMP Elevated BP Possible was related to malaise and pain from the surgery Not on any BP med BP improved add hydralazine prn for SBP greater than 160 continue monitor BP Follow up with PCP Simba LARIOS on 02/04 @ 11:05 for BP management DVT Px as per Ortho CODE status full code Current Inpatient Medications: Current Inpatient Medications Medications (Trade) Dose Ordered Sig/Gosia Route Start Time Stop Time Status Last Admin Dose Admin Atorvastatin Calcium (Lipitor Tab) 40 mg QPM PO 01/29/17 21:00 02/28/17 20:59 01/30/17 20:38 40 MG Bupropion HCl (Wellbutrin-Sr Tab) 150 mg BID PO 01/29/17 21:00 02/28/17 20:59 01/31/17 08:06 150 MG Fluoxetine HCl (Prozac Cap) 10 mg QAM PO 01/30/17 09:00 03/01/17 08:59 01/31/17 08:07 10 MG Oxycodone HCl (Roxicodone Immediate Rel Tab) 1 TABLET FOR PAIN RATING... Q4H PRN PO 01/29/17 16:15 02/12/17 16:14 01/31/17 08:06 10 MG Oxycodone HCl (Oxycontin Tab) 10 mg Q12 PO 01/29/17 21:00 02/12/17 20:59 01/31/17 08:06 10 MG Acetaminophen (Tylenol Tab) 1,000 mg Q8H PO 01/29/17 22:00 02/28/17 21:59 01/31/17 06:16 1,000 MG Magnesium Hydroxide (Milk Of Magnesia Susp) 30 ml Q6H PRN PO 01/29/17 16:15 02/28/17 16:14 Bisacodyl (Dulcolax Supp) 10 mg DAILY PRN LA 01/29/17 16:15 02/28/17 16:14 Senna (Senokot Tab) 17.2 mg HS PO 01/29/17 21:00 02/28/17 20:59 01/30/17 20:38 17.2 MG Docusate Sodium (coLACE CAP) 100 mg BID PO 01/29/17 21:00 02/28/17 20:59 01/31/17 08:07 100 MG Al Hydrox/Mg Hydrox/Simethicone (Maalox Max Susp) 15 ml Q4H PRN PO 01/29/17 16:15 02/28/17 16:14 Multivitamins (Multivitamin Tab) 1 tab QAM PO 01/30/17 09:00 03/01/17 08:59 01/31/17 08:06 1 TAB Ondansetron HCl (Zofran Inj) 4 mg Q6H PRN IV 01/29/17 16:15 02/28/17 16:14 01/30/17 07:33 4 MG Ferrous Gluconate (Ferrous Gluconate Tab) 324 mg TIDM PO 01/29/17 17:45 02/28/17 17:59 01/31/17 08:06 324 MG Pantoprazole Sodium (Protonix Tab) 40 mg QAM PO 01/30/17 09:00 03/01/17 08:59 01/31/17 08:07 40 MG Aspirin (Ecotrin Tab) 81 mg BID PO 01/29/17 21:00 02/28/17 20:59 01/31/17 08:06 81 MG Morphine Sulfate (MoRPHine SULFATE INJ) 2 mg Q4HWA PRN IV 01/29/17 16:30 02/12/17 16:29 Morphine Sulfate (MoRPHine SULFATE INJ) 4 mg Q4HWA PRN IV 01/29/17 16:30 02/12/17 16:29 Morphine Sulfate (MoRPHine SULFATE INJ) 6 mg Q4HWA PRN IV 01/29/17 16:30 02/12/17 16:29 Hydralazine HCl (HydrALAZINE INJ) 5 mg Q4H PRN IV. 01/30/17 10:30 03/01/17 10:29
[2017-01-31] MEDS ORDERED: ONDANSETRON 4MG OD TAB SL STA (10:55)
[2017-01-31] MEDS ORDERED: NURSING VERBAL MED ORDER ONE (11:00)
--- NOTE | 2017-02-01 16:55 | DISCHARGE SUMMARY ---
DISCHARGE DIAGNOSIS: Degenerative joint disease, right knee. SECONDARY DIAGNOSES: Hypercholesterolemia, shortness of breath with increased activity, osteoarthritis, gastroesophageal reflux disease, obesity, chronic kidney disease, stage 3. CONSULTS: Dr. Rouse. COMPLICATIONS: None. PROCEDURES: Right total knee arthroplasty performed by Dr. Vargas on 01/29/2017. BRIEF HISTORY: As dictated in history and physical. HOSPITAL SUMMARY: The patient was admitted on the above-noted date and had the above-noted surgery performed which she tolerated well. On the first postoperative day, the patient was having some nausea and vomiting. Pain was controlled. Her nausea was resolving as the morning was wearing on. Her blood pressures were fluctuating off and on, highest being 163/96 and kidney function was mildly elevated. Calves were soft, nontender, neurovascularly intact. Capillary refill is less than 2 seconds. Dressings clean, dry and intact. Toes were mobile. Hemoglobin was 12.1 and she was started on physical therapy protocol and continued on DVT prophylaxis and pain management and Dr. Rouse was consulted to follow hypertension and kidney function. On her second postoperative day, she was feeling well, pain was controlled. Renal function was improving. BP was still somewhat elevated. Calves were soft and nontender. Neurovascularly intact. Cap refill is less than 2 seconds. Dressings clean, dry and intact. Toes were mobile. Latest BP was 152/94, pulse was 71, temperature 36.6, hemoglobin was 10.9. BUN and creatinine were 19 and 1.3 and had come down from 21 and [address] Rouse saw the patient as well on the second postoperative day and plans were to have the patient follow up with her primary care physician on 02/04/2017 for BP management. Plans were to avoid nephrotoxic agents and basically it was felt she could be discharged to home. She was progressing well with her physical therapy and was discharged to home on 01/31/2017. For further review, please see chart. LAB AND X-RAY DATA: As per chart. DISCHARGE INSTRUCTIONS: The patient was discharged to home in satisfactory condition on 01/31/2017. DIET: Regular. ACTIVITY: Follow TKA instruction sheets and special care instructions as noted. Follow up with Dr. Vargas in 2 weeks. The patient to call for an appointment if one has not been made for you. DISCHARGE MEDICATIONS: New prescriptions acetaminophen 1000 mg p.o. q.8 hours, aspirin 81 mg p.o. b.i.d., Zofran 8 mg p.o. q.8 hours p.r.n., OxyContin 10 mg p.o. q.12 hours, oxycodone 5-10 mg p.o. q. 4 hours p.r.n. Resume taking atorvastatin 40 mg p.o. q.p.m., Wellbutrin-SR 150 mg p.o. b.i.d., Prozac 10 mg p.o. q.a.m. and omeprazole 20 mg p.o. q.a.m.
== END 2017-01-31 11:51 | disposition home health service (06) | DRG 470 ==
LOC: C.ACU 12:24 → C.3E 13:10 → ENRESERV 16:28
PROVIDERS: ADMIT Orthopaedic Surgery; ATTEND Orthopaedic Surgery
PROC: 0SRC0J9 Replacement of Right Knee Joint with Synthetic Substitute, Cemented, Open Approach (ICD-10-PCS; principal; 2017-01-29 15:30)
DX: M17.9 Osteoarthritis of knee, unspecified (principal); E78.00 Pure hypercholesterolemia, unspecified; K21.9 Gastro-esophageal reflux disease without esophagitis; E66.9 Obesity, unspecified; N18.3 Chronic kidney disease, stage 3 (moderate); Z68.35 Body mass index [BMI] 35.0-35.9, adult